=== PATIENT | male | born 1935 | race Caucasian/White ===

== ENCOUNTER 2020-03-07 08:44 | Outpatient (CLI) | payer MEDICARE, OTHER ==
--- NOTE | 2020-03-07 10:36 | CT ---
EXAM: CTA Angio Chest W Con PROVIDED CLINICAL HISTORY: Thoracic aortic aneurysm. COMPARISON: None FINDINGS: There is prominent motion involving the ascending thoracic aorta. There is greater increased density seen in the region of the aortic valve and in the region of mitral valve annulus likely due to calcifications. The ascending thoracic aorta is ectatic to slightly aneurysmal dilated measuring 4.5 cm transverse x4.3 cm AP. The descending thoracic aorta is normal in caliber. There is no evidence of an aortic dissection. Scattered mild atherosclerotic calcifications and plaque are seen in the tho racic aorta. Vascular calcifications are seen at the origins of the great vessels, but the origins of the great vessels are patent. There are coronary artery calcifications visualized. 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 Mild ather osclerotic calcifications are seen at the origins of each single renal artery with mild narrowing present. No enlarged mediastinal lymph nodes are seen. There is a moderate-sized hiatal hernia with the majori ty of the fundus and body of the stomach above the level of the hemidiaphragms. There are scattered peripherally located linear densities predominantly at the lung bases likely due to mild chronic interstitial lung changes. Scattered calcified granulomata each lung base. No pleural effusion or consolidation is seen. Large airways appear patent. A nonobstructing superior pole left renal calculus is seen measuring 9 mm. Subcentimeter hypodense to o small to characterize lesions are seen in the visualized superior pole of each kidney. IMPRESSION: 1. Ectasia to slight aneurysmal dilatation of the ascending thoracic aorta with greatest axial dimens ions of 4.5 cm x 4.3 cm. There is no evidence of an aortic dissection. 2. Atherosclerotic vascular calcifications in the coronary arteries as well as involving the thoracic and visualized abdominal aorta. 3. Calcifications in the region of mitral valve annulus and aortic valve. 4. Large hiatal hernia with majority the stomach above the level of the hemidiaphragms. 5. Mild chronic lung changes and findings suggesting prior granulomatous disease. 6. 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 7. Nonobstructing superior pole left renal calculus. 8. Subcentimeter too small to characterize hypodense lesions in each kidney.
[2020-03-07] MEDS ORDERED: Iopamidol 370 76% 100 ML VIAL ONE (12:10)
== END 2020-03-07 08:45 | disposition home or self-care (01) ==
LOC: BICCT 08:44
PROVIDERS: ATTEND Internal Medicine Cardiovascular Disease
DX: I71.2 Thoracic aortic aneurysm, without rupture (principal); I77.810 Thoracic aortic ectasia; I25.10 Atherosclerotic heart disease of native coronary artery without angina pectoris; I70.0 Atherosclerosis of aorta; N20.0 Calculus of kidney; N28.9 Disorder of kidney and ureter, unspecified; K44.9 Diaphragmatic hernia without obstruction or gangrene
CPT/HCPCS: 71275; 82565; Q9967

== ENCOUNTER 2021-06-28 09:02 | Outpatient (CLI) | payer MEDICARE, BC ==
[2021-06-28] MEDS ORDERED: Magnevist 469MG/ML 20 ML VIAL ONE (09:18)
[2021-06-28 12:15] LABS: ALT (SGPT) 13 U/L (8-55); AST (SGOT) 28 U/L (5-34); Albumin 4.3 g/dL (3.4-4.8); Alkaline Phosphatase 101 U/L (40-110); Anion Gap 13 mmol/L (10-20); BUN (Urea Nitrogen) 21 mg/dL (8.4-25.7); Bilirubin, Total 0.4 mg/dL (0.2-1.2); Calc. Creatinine Clearance 0 mL/min (70-130); Calcium 10.2 mg/dL (7.8-10.44); Carbon Dioxide 30 mmol/L (23-31); Chloride 103 mmol/L (98-107); Globulin 2.7 g/dL (2.4-3.5); Glucose 110 mg/dL (83-110); Potassium 5.4 mmol/L (3.5-5.1); Sodium 141 mmol/L (136-145)
== END 2021-06-28 09:03 | disposition home or self-care (01) ==
LOC: MRI 09:02
PROVIDERS: ATTEND Physician Assistant Medical
DX: K44.9 Diaphragmatic hernia without obstruction or gangrene (principal); K80.70 Calculus of gallbladder and bile duct without cholecystitis without obstruction; K83.8 Other specified diseases of biliary tract; N28.1 Cyst of kidney, acquired; K86.2 Cyst of pancreas; K76.89 Other specified diseases of liver; R79.89 Other specified abnormal findings of blood chemistry; R63.4 Abnormal weight loss; R93.89 Abnormal findings on diagnostic imaging of other specified body structures
CPT/HCPCS: 36415; 74183; 80053; 82565; A9579

== ENCOUNTER 2021-06-30 14:38 | Outpatient (CLI) | payer MEDICARE, BC ==
[2021-07-01 15:47] LABS: SARS-CoV-2 PCR by NAA Not Detected (NotDetected)
== END 2021-06-30 14:39 | disposition home or self-care (01) ==
LOC: LABBT 14:38
PROVIDERS: ATTEND Internal Medicine Gastroenterology
DX: Z20.822 Contact with and (suspected) exposure to COVID-19 (principal)
CPT/HCPCS: U0003; U0005

== ENCOUNTER 2021-07-03 07:19 | Day surgery (SDC) | payer MEDICARE, BC ==
[2021-06-30 10:02] VITALS: BMI 20.9
[2021-07-03] MEDS ORDERED: Indomethacin 50 MG SUPP ONE (09:09)
[2021-07-03] MEDS ORDERED: Iopamidol 15 ML ONE (09:10)
[2021-07-03] MEDS ORDERED: SUGAMMADEX SODIUM 200 MG/2 ML VIAL ONE (09:21)
[2021-07-03] MEDS ORDERED: fentaNYL Citrate/PF 100 MCG/2 ML SYRINGE ONE (09:21)
[2021-07-03] MEDS ORDERED: Famotidine/PF 20 mg/2ml Vial ONE (09:21)
[2021-07-03] MEDS ORDERED: Levofloxacin 500 mg/D5W 100 ml Premix Bag ONE (09:25)
[2021-07-03] MEDS ORDERED: Lidocaine 1% PF 5 ML VIAL ONE (09:33)
[2021-07-03] MEDS ORDERED: Ondansetron PF 4 MG/2 ML Vial ONE (09:33)
[2021-07-03] MEDS ORDERED: Metoclopramide HCl 10 MG/2 ML VIAL ONE (09:33)
[2021-07-03] MEDS ORDERED: PROPOFOL 200 MG/20 ML VIAL ONE (09:33)
[2021-07-03] MEDS ORDERED: Rocuronium Bromide 10 MG/ML (10ML VIAL) ONE (09:33)
[2021-07-03] MEDS ORDERED: PHENYLEPHRINE-NS 100 MCG/ML 10 ML SYRINGE ONE (09:33)
== END 2021-07-03 14:35 | disposition home or self-care (01) ==
LOC: SDC 07:19
PROVIDERS: ATTEND Internal Medicine Gastroenterology
PROC: 0F798ZZ Dilation of Common Bile Duct, Via Natural or Artificial Opening Endoscopic (ICD-10-PCS; principal; 2021-07-03)
PROC: 0FC98ZZ Extirpation of Matter from Common Bile Duct, Via Natural or Artificial Opening Endoscopic (ICD-10-PCS; 2021-07-03)
DX: K80.51 Calculus of bile duct without cholangitis or cholecystitis with obstruction (principal); K57.10 Diverticulosis of small intestine without perforation or abscess without bleeding; K44.9 Diaphragmatic hernia without obstruction or gangrene; E78.5 Hyperlipidemia, unspecified; I35.0 Nonrheumatic aortic (valve) stenosis; E11.9 Type 2 diabetes mellitus without complications; Z79.84 Long term (current) use of oral hypoglycemic drugs; Z79.899 Other long term (current) drug therapy
CPT/HCPCS: 74330; J1956; J2405; J2704; J2765; Q9967; S0028

== ENCOUNTER 2023-04-05 13:04 | Outpatient (CLI) | payer MEDICARE, BC ==
[2023-04-05] MEDS ORDERED: Iopamidol-370 76% 500 ML MDV (1 ML CHARGE) ONE (15:17)
== END 2023-04-05 13:05 | disposition home or self-care (01) ==
LOC: BICCT 13:04
PROVIDERS: ATTEND Internal Medicine Cardiovascular Disease
DX: I71.60 Thoracoabdominal aortic aneurysm, without rupture, unspecified (principal); I77.810 Thoracic aortic ectasia; K44.9 Diaphragmatic hernia without obstruction or gangrene; K80.20 Calculus of gallbladder without cholecystitis without obstruction; J98.4 Other disorders of lung; K83.8 Other specified diseases of biliary tract; K76.89 Other specified diseases of liver
CPT/HCPCS: 71275; 82565

== ENCOUNTER 2023-12-10 09:35 | Outpatient (CLI) | payer MEDICARE, BC ==
[2023-12-10] MEDS ORDERED: Iopamidol 370 76% 100 ML VIAL ONE (10:44)
== END 2023-12-10 09:36 | disposition home or self-care (01) ==
LOC: BICCT 09:35
PROVIDERS: ATTEND Urology
DX: R31.0 Gross hematuria (principal); K44.9 Diaphragmatic hernia without obstruction or gangrene; N20.0 Calculus of kidney; K80.20 Calculus of gallbladder without cholecystitis without obstruction; K83.8 Other specified diseases of biliary tract; K76.89 Other specified diseases of liver; N32.89 Other specified disorders of bladder
CPT/HCPCS: 74178; Q9967